=== PATIENT | male | born 1950 | race Caucasian/White ===

== ENCOUNTER → 2017-03-14 | Outpatient (CLI) | payer OTHER ==
--- NOTE | ~2017-03-14 | CT57 ---
[facility] A Service of [facility] RADIOLOGY TEXT RESULTS PATIENT: MATHEW OH LOCATION: [facility] : 46 UNIT #: [id number] AGE: [address]: Eze Au MD SEX: M ORDER DR: [id number] [facility] [place], [place] [address] [id number] O MR#: [id number] Acc #: [id number] NAME: MATHEW OH : 1950 SEX: M STUDY DATE/TIME: 03/14/2017 7:55 UNIT: [facility] ROOM: STUDY DESCRIPTION: CT Chest Wo Cont Attending Physician: Eze Au M.D. Referring Physician: Eze Au M.D. Ordering Physician: Eze Au M.D. Primary Care Physician: Eze Au M.D. MEDICAL IMAGING REPORT This report is preliminary unless electronic signature is present EXAM CT of the chest without contrast INDICATION Cough and congestion for 2 weeks. History of a pulmonary nodule. TECHNIQUE CT of the chest was performed without contrast. Coronal and sagittal reformatted images were obtained. This CT exam was performed with one or more of the following radiation dose reduction techniques: automatic exposure control, adjustment of mA and/or kV according to patient size, and iterative reconstruction. COMPARISON 04/23/2011 FINDINGS There are bilateral calcified granulomas. There is a stable subcentimeter noncalcified nodule in the right lower lobe on image 98 which is benign given the length of time of stability. There is another benign noncalcified subcentimeter nodule in the left lower lobe on image 117 which is stable. Calcified mediastinal and hilar lymph nodes. No pleural effusion. Limited imaging of the upper abdomen is unremarkable. The bone windows demonstrate degenerative changes of the thoracic spine. IMPRESSION Stable exam. No suspicious pulmonary nodule. Dictated by... Leo Wilson M.D. THIS IS AN ELECTRONICALLY VERIFIED REPORT [facility] A Service [facility] RADIOLOGY TEXT RESULTS PATIENT: MATHEW OH LOCATION: [facility] : 46 UNIT #: [id number] AGE: [address]: Eze Au MD SEX: M ORDER DR: Leo Wilson M.D. at 03/15/2017 8:14 AM Ricardo TD: 03/14/2017 14:25 JOB #: [id number] MEDICAL IMAGING REPORT Page 1 of 1 COPY
== END | disposition home or self-care (01) ==
LOC: CCAT 07:21
DX: R05 Cough (principal); R09.89 Other specified symptoms and signs involving the circulatory and respiratory systems; Z87.09 Personal history of other diseases of the respiratory system
CPT/HCPCS: 71250